=== PATIENT | female | born 1940 | race Two or more races ===

== ENCOUNTER 2022-06-21 14:19 | Inpatient (IN) | payer OTHER ==
[2022-06-21 18:48] LABS: BASO % 0.8 % (0-2.0); EOS % 1.7 % (0-4.5); HEMATOCRIT 19.9 % (32.4-45.2); LYMPH % 26.4 % (8-40); MCH 36.6 pg (25.7-33.7); MCHC 33.7 g/dl (32.0-36.0); MEAN CELL VOLUME 108.4 fl (80-96); MEAN PLT VOLUME 8.6 fl (7.5-11.1); MONO % 15.1 % (3.8-10.2); PLATELET COUNT 229 10^3/uL (134-434); RBC 1.84 M/mm3 (3.60-5.2); RDW 16.4 % (11.6-15.6); WHITE BLOOD COUNT 6.9 K/mm3 (4.0-10.0)
[2022-06-21 18:51] LABS: HEMOGLOBIN 6.7 GM/dL (10.7-15.3)
[2022-06-21 18:56] LABS: INR 1.06 (0.83-1.09); PROTHROMBIN TIME (PATIENT) 12.2 SEC (9.7-13.0)
[2022-06-21 18:58] LABS: ACTIVATED PTT 26.2 SECONDS (25.2-36.5)
[2022-06-21 19:08] LABS: CALCIUM 8.6 mg/dL (8.5-10.1)
[2022-06-21 19:10] LABS: ALBUMIN 2.9 g/dl (3.4-5.0); BLOOD UREA NITROGEN 18.8 mg/dL (7-18)
[2022-06-21 19:13] LABS: ANISOCYTOSIS 1+; CREATININE 4.8 mg/dL (0.55-1.3); MACROCYTOSIS 0
[2022-06-21 19:14] LABS: BILIRUBIN,TOTAL 0.7 mg/dL (0.2-1); TOT PROT 5.9 g/dl (6.4-8.2)
[2022-06-21 22:44] LABS: IRON SERUM 116 ug/dL (50-175); TOTAL IRON BINDING CAPACITY 309 ug/dL (250-450)
[2022-06-22] MEDS: DEXTROSE 5%-0.45% SALINE 1,000 ML IV SCH (05:20)
[2022-06-22] MEDS ORDERED: SODIUM CHLORIDE 250 ML IV PRN (10:48)
[2022-06-22 10:53] LABS: BASO % 0.7 % (0-2.0); EOS % 1.5 % (0-4.5); HEMATOCRIT 27.5 % (32.4-45.2); HEMOGLOBIN 9.4 GM/dL (10.7-15.3); LYMPH % 13.7 % (8-40); MCH 35.2 pg (25.7-33.7); MCHC 34.4 g/dl (32.0-36.0); MEAN CELL VOLUME 102.3 fl (80-96); MEAN PLT VOLUME 8.6 fl (7.5-11.1); MONO % 12.3 % (3.8-10.2); NEUT % 71.8 % (42.8-82.8); PLATELET COUNT 212 10^3/uL (134-434); RBC 2.68 M/mm3 (3.60-5.2); RDW 18.5 % (11.6-15.6); WHITE BLOOD COUNT 8.9 K/mm3 (4.0-10.0)
[2022-06-22 11:40] LABS: ALBUMIN 2.9 g/dl (3.4-5.0); BLOOD UREA NITROGEN 20.1 mg/dL (7-18); CALCIUM 8.4 mg/dL (8.5-10.1)
[2022-06-22 11:43] LABS: CREATININE 5.1 mg/dL (0.55-1.3)
[2022-06-22 11:44] LABS: BILIRUBIN,TOTAL 0.7 mg/dL (0.2-1); TOT PROT 5.7 g/dl (6.4-8.2)
[2022-06-22] MEDS ORDERED: EPOETIN ALFA-EPBX 20,000 UNIT/ML VIAL IVPUSH ONE (13:00)
[2022-06-22] MEDS: PANTOPRAZOLE SODIUM 40 MG VIAL IVPUSH SCH (13:06)
[2022-06-22] MEDS ORDERED: PANTOPRAZOLE SODIUM 40 MG/100 ML BAG IVPB ONE (13:07)
[2022-06-22] MEDS: FLU VACC QS2022-23(6MOS UP)/PF 60 MCG/0.5 ML SYRINGE IM ONE (19:45)
[2022-06-23 07:56] LABS: BASO % 0.7 % (0-2.0); EOS % 1.3 % (0-4.5); HEMOGLOBIN 8.8 GM/dL (10.7-15.3); LYMPH % 17.7 % (8-40); MCH 34.7 pg (25.7-33.7); MCHC 33.8 g/dl (32.0-36.0); MEAN CELL VOLUME 102.6 fl (80-96); MEAN PLT VOLUME 8.5 fl (7.5-11.1); MONO % 15.5 % (3.8-10.2); NEUT % 64.8 % (42.8-82.8); PLATELET COUNT 216 10^3/uL (134-434); RBC 2.53 M/mm3 (3.60-5.2); RDW 19.4 % (11.6-15.6); WHITE BLOOD COUNT 6.9 K/mm3 (4.0-10.0)
[2022-06-23 08:21] LABS: CALCIUM 8.4 mg/dL (8.5-10.1)
[2022-06-23 08:22] LABS: ALBUMIN 2.6 g/dl (3.4-5.0)
[2022-06-23 08:25] LABS: BILIRUBIN,TOTAL 0.4 mg/dL (0.2-1); CREATININE 3.2 mg/dL (0.55-1.3); TOT PROT 5.4 g/dl (6.4-8.2)
[2022-06-23] MEDS: PANTOPRAZOLE SODIUM 40 MG VIAL IVPUSH SCH (10:21)
[2022-06-23] MEDS: DEXTROSE 5%-0.45% SALINE 1,000 ML IV SCH ×2 (10:23→21:35)
[2022-06-23] MEDS: ROSUVASTATIN CA 10 MG TABLET PO SCH (21:34)
[2022-06-24 07:52] LABS: BASO % 1.2 % (0-2.0); HEMATOCRIT 34.1 % (32.4-45.2); HEMOGLOBIN 11.2 GM/dL (10.7-15.3); LYMPH % 18.1 % (8-40); MCH 34.8 pg (25.7-33.7); MCHC 32.9 g/dl (32.0-36.0); MEAN CELL VOLUME 105.8 fl (80-96); MEAN PLT VOLUME 8.6 fl (7.5-11.1); MONO % 8.1 % (3.8-10.2); NEUT % 71.6 % (42.8-82.8); PLATELET COUNT 265 10^3/uL (134-434); RBC 3.23 M/mm3 (3.60-5.2); RDW 19.4 % (11.6-15.6); WHITE BLOOD COUNT 12.2 K/mm3 (4.0-10.0)
[2022-06-24 08:14] LABS: CALCIUM 9.2 mg/dL (8.5-10.1)
[2022-06-24 08:15] LABS: BLOOD UREA NITROGEN 10.2 mg/dL (7-18)
[2022-06-24 08:19] LABS: CREATININE 4.1 mg/dL (0.55-1.3)
[2022-06-24] MEDS: SERTRALINE HCL 25 MG TABLET (FP) PO SCH (09:24)
[2022-06-24] MEDS: PANTOPRAZOLE SODIUM 40 MG VIAL IVPUSH SCH (09:24)
[2022-06-24] MEDS: CARVEDILOL 6.25 MG TABLET (FP) PO SCH ×2 (09:24→16:52)
[2022-06-24] MEDS: DONEPEZIL HCL 10 MG TABLET (FP) PO SCH (09:25)
[2022-06-24] MEDS: SEVELAMER CARBONATE 0.8 GM POWDER PACKET PO SCH ×3 (09:25→16:53)
[2022-06-24] MEDS: DEXTROSE 5%-0.45% SALINE 1,000 ML IV SCH (11:58)
[2022-06-24] MEDS ORDERED: SODIUM CHLORIDE 250 ML IV PRN (13:00)
[2022-06-24] MEDS: ROSUVASTATIN CA 10 MG TABLET PO SCH (21:19)
[2022-06-25] MEDS: SEVELAMER CARBONATE 0.8 GM POWDER PACKET PO SCH ×3 (08:11→16:39)
[2022-06-25 08:41] LABS: BASO % 1.2 % (0-2.0); EOS % 1.9 % (0-4.5); HEMATOCRIT 28.2 % (32.4-45.2); HEMOGLOBIN 9.4 GM/dL (10.7-15.3); LYMPH % 13.8 % (8-40); MCH 35.4 pg (25.7-33.7); MCHC 33.4 g/dl (32.0-36.0); MEAN PLT VOLUME 8.5 fl (7.5-11.1); MONO % 9.1 % (3.8-10.2); PLATELET COUNT 213 10^3/uL (134-434); RBC 2.66 M/mm3 (3.60-5.2); RDW 19.1 % (11.6-15.6); WHITE BLOOD COUNT 9.7 K/mm3 (4.0-10.0)
[2022-06-25 09:02] LABS: CALCIUM 9.3 mg/dL (8.5-10.1)
[2022-06-25 09:03] LABS: ALBUMIN 2.8 g/dl (3.4-5.0); BLOOD UREA NITROGEN 16.6 mg/dL (7-18)
[2022-06-25 09:05] LABS: CREATININE 4.7 mg/dL (0.55-1.3)
[2022-06-25 09:07] LABS: BILIRUBIN,TOTAL 0.5 mg/dL (0.2-1)
[2022-06-25 09:45] LABS: HEMATOCRIT 25.6 % (32.4-45.2); HEMOGLOBIN 8.6 GM/dL (10.7-15.3); MCH 35.4 pg (25.7-33.7); MCHC 33.5 g/dl (32.0-36.0); MEAN CELL VOLUME 105.5 fl (80-96); MEAN PLT VOLUME 8.4 fl (7.5-11.1); PLATELET COUNT 213 10^3/uL (134-434); RBC 2.43 M/mm3 (3.60-5.2); RDW 19.2 % (11.6-15.6); WHITE BLOOD COUNT 9.1 K/mm3 (4.0-10.0)
[2022-06-25 10:19] LABS: BLOOD UREA NITROGEN 17.7 mg/dL (7-18); CALCIUM 9.2 mg/dL (8.5-10.1)
[2022-06-25 10:23] LABS: CREATININE 4.8 mg/dL (0.55-1.3)
[2022-06-25] MEDS: CARVEDILOL 6.25 MG TABLET (FP) PO SCH ×2 (10:29→16:39)
[2022-06-25] MEDS: SERTRALINE HCL 25 MG TABLET (FP) PO SCH (12:12)
[2022-06-25] MEDS: DONEPEZIL HCL 10 MG TABLET (FP) PO SCH (12:12)
[2022-06-25] MEDS: PANTOPRAZOLE SODIUM 40 MG VIAL IVPUSH SCH (12:13)
[2022-06-25 12:28] LABS: ANISOCYTOSIS 0; MACROCYTOSIS 2+
[2022-06-25 14:29] LABS: N-TERMINAL BNP 24169.8 pg/ml (5-450)
[2022-06-25] MEDS: ROSUVASTATIN CA 10 MG TABLET PO SCH (21:37)
[2022-06-26] MEDS: SEVELAMER CARBONATE 0.8 GM POWDER PACKET PO SCH ×3 (07:56→16:53)
[2022-06-26] MEDS: CARVEDILOL 6.25 MG TABLET (FP) PO SCH ×2 (07:57→16:52)
[2022-06-26] MEDS: SERTRALINE HCL 25 MG TABLET (FP) PO SCH (09:59)
[2022-06-26] MEDS: DONEPEZIL HCL 10 MG TABLET (FP) PO SCH (09:59)
[2022-06-26] MEDS: PANTOPRAZOLE SODIUM 40 MG VIAL IVPUSH SCH (09:59)
[2022-06-26] MEDS ORDERED: SODIUM CHLORIDE 250 ML IV PRN (12:42)
[2022-06-26] MEDS: ROSUVASTATIN CA 10 MG TABLET PO SCH (21:03)
[2022-06-27] MEDS ORDERED: EPOETIN ALFA-EPBX 10,000 UNIT/ML VIAL IVPUSH ONE (13:00)
[2022-06-27] MEDS: DONEPEZIL HCL 10 MG TABLET (FP) PO SCH (18:04)
[2022-06-27] MEDS: CARVEDILOL 6.25 MG TABLET (FP) PO SCH ×2 (18:04)
[2022-06-27] MEDS: SEVELAMER CARBONATE 0.8 GM POWDER PACKET PO SCH ×3 (18:05→18:06)
[2022-06-27] MEDS: SERTRALINE HCL 25 MG TABLET (FP) PO SCH (18:05)
[2022-06-27] MEDS: PANTOPRAZOLE SODIUM 40 MG VIAL IVPUSH SCH (18:07)
[2022-06-27] MEDS: ROSUVASTATIN CA 10 MG TABLET PO SCH (21:24)
[2022-06-28] MEDS: SEVELAMER CARBONATE 0.8 GM POWDER PACKET PO SCH ×3 (08:54→16:38)
[2022-06-28] MEDS: CARVEDILOL 6.25 MG TABLET (FP) PO SCH ×2 (08:54→16:38)
[2022-06-28] MEDS: PANTOPRAZOLE SODIUM 40 MG VIAL IVPUSH SCH (09:41)
[2022-06-28] MEDS: SERTRALINE HCL 25 MG TABLET (FP) PO SCH (09:41)
[2022-06-28] MEDS: DONEPEZIL HCL 10 MG TABLET (FP) PO SCH (09:41)
[2022-06-28] MEDS ORDERED: SODIUM CHLORIDE 250 ML IV PRN (15:58)
[2022-06-28 17:30] LABS: BASO % 0.7 % (0-2.0); EOS % 2.6 % (0-4.5); HEMATOCRIT 26.6 % (32.4-45.2); LYMPH % 15.3 % (8-40); MCHC 33.8 g/dl (32.0-36.0); MEAN CELL VOLUME 106.5 fl (80-96); MEAN PLT VOLUME 7.9 fl (7.5-11.1); MONO % 10.3 % (3.8-10.2); NEUT % 71.1 % (42.8-82.8); PLATELET COUNT 216 10^3/uL (134-434); RDW 19.5 % (11.6-15.6); WHITE BLOOD COUNT 7.3 K/mm3 (4.0-10.0)
[2022-06-28 17:45] LABS: CALCIUM 9.2 mg/dL (8.5-10.1)
[2022-06-28 17:46] LABS: ALBUMIN 2.7 g/dl (3.4-5.0); BLOOD UREA NITROGEN 9.6 mg/dL (7-18)
[2022-06-28 17:50] LABS: ANISOCYTOSIS 2+; CREATININE 3.6 mg/dL (0.55-1.3); MACROCYTOSIS 2+; TARGET CELLS 1+
[2022-06-28 17:51] LABS: BILIRUBIN,TOTAL 0.4 mg/dL (0.2-1); TOT PROT 5.7 g/dl (6.4-8.2)
[2022-06-28 20:56] VITALS: BMI 30.1
[2022-06-29] MEDS: ROSUVASTATIN CA 10 MG TABLET PO SCH ×2 (07:23→21:07)
[2022-06-29] MEDS: SEVELAMER CARBONATE 0.8 GM POWDER PACKET PO SCH ×3 (09:01→18:43)
[2022-06-29] MEDS: DONEPEZIL HCL 10 MG TABLET (FP) PO SCH (09:02)
[2022-06-29] MEDS: SERTRALINE HCL 25 MG TABLET (FP) PO SCH (09:02)
[2022-06-29] MEDS: PANTOPRAZOLE SODIUM 40 MG VIAL IVPUSH SCH (09:02)
[2022-06-29] MEDS ORDERED: EPOETIN ALFA-EPBX 10,000 UNIT/ML VIAL SQ ONE (16:15)
[2022-06-29 16:36] LABS: HEMATOCRIT 25.6 % (32.4-45.2); HEMOGLOBIN 8.5 GM/dL (10.7-15.3); MCH 35.1 pg (25.7-33.7); MCHC 33.1 g/dl (32.0-36.0); MEAN CELL VOLUME 106.1 fl (80-96); MEAN PLT VOLUME 8.3 fl (7.5-11.1); PLATELET COUNT 214 10^3/uL (134-434); RBC 2.41 M/mm3 (3.60-5.2); RDW 19.3 % (11.6-15.6); WHITE BLOOD COUNT 7.8 K/mm3 (4.0-10.0)
[2022-06-29 16:59] LABS: ALBUMIN 2.6 g/dl (3.4-5.0); CALCIUM 9.2 mg/dL (8.5-10.1)
[2022-06-29 17:02] LABS: CREATININE 4.1 mg/dL (0.55-1.3)
[2022-06-29 17:04] LABS: BILIRUBIN,TOTAL 0.4 mg/dL (0.2-1); TOT PROT 5.4 g/dl (6.4-8.2)
[2022-06-29] MEDS: CARVEDILOL 6.25 MG TABLET (FP) PO SCH ×2 (18:04→18:43)
[2022-06-30] MEDS: SEVELAMER CARBONATE 0.8 GM POWDER PACKET PO SCH ×2 (08:30→12:22)
[2022-06-30] MEDS: CARVEDILOL 6.25 MG TABLET (FP) PO SCH (08:30)
[2022-06-30] MEDS: DONEPEZIL HCL 10 MG TABLET (FP) PO SCH (10:07)
[2022-06-30] MEDS: SERTRALINE HCL 25 MG TABLET (FP) PO SCH (10:07)
[2022-06-30] MEDS: PANTOPRAZOLE SODIUM 40 MG VIAL IVPUSH SCH (10:07)
[2022-06-30 10:19] VITALS: BP 139/72; PULSE 75; RESP 16; TEMP 99.4
== END 2022-06-30 13:15 | disposition home or self-care (01) | DRG 377 ==
LOC: JER 14:19 → JERBED 06-22 01:52 → J4W 06-22 16:22
PROVIDERS: ADMIT Internal Medicine; ATTEND Internal Medicine
PROC: 30233N1 Transfusion of Nonautologous Red Blood Cells into Peripheral Vein, Percutaneous Approach (ICD-10-PCS; principal; 2022-06-21)
PROC: 5A1D70Z Performance of Urinary Filtration, Intermittent, Less than 6 Hours Per Day (ICD-10-PCS; 2022-06-29)
DX: K92.2 Gastrointestinal hemorrhage, unspecified (principal); N18.6 End stage renal disease; D62 Acute posthemorrhagic anemia; E87.20 Acidosis, unspecified; I42.9 Cardiomyopathy, unspecified; E87.1 Hypo-osmolality and hyponatremia; I12.0 Hypertensive chronic kidney disease with stage 5 chronic kidney disease or end stage renal disease; F03.90 Unspecified dementia, unspecified severity, without behavioral disturbance, psychotic disturbance, mood disturbance, and anxiety; Z99.2 Dependence on renal dialysis
CPT/HCPCS: 36415; 36430; 71260-TC; 74176-TC; 76775-TC; 80048; 80053; 80061; 82272; 82607; 82728; 82746; 83036; 83540; 83550; 83880; 84443; 85025; 85027; 85610; 85730; 86803; 86850; 86900; 86901; 86922; 87340; 93005; 93010; 93306-TC; 99285-25; C9803-CS; G0008; P9058; Q2036; Q5106; Q9967; U0003; U0005

== ENCOUNTER 2022-08-24 10:53 | Inpatient (IN) | payer OTHER ==
[~2022-08-24 10:53] MED LIST: SEVELAMER CARBONATE 0.8 GM POWDER PACKET PO SCH
[2022-08-24 11:08] VITALS: BMI 27.3
[2022-08-24] MEDS ORDERED: ACETAMINOPHEN 1000 MG/100 ML BAG IVPB ONE (12:48)
[2022-08-24] MEDS ORDERED: FUROSEMIDE 40 MG/4 ML INJECTABLE VIAL IVPUSH ONE (12:48)
[2022-08-24] MEDS ORDERED: LIDOCAINE 5% TOPICAL PATCH TP ONE (12:49)
[2022-08-24] MEDS ORDERED: ACETAMINOPHEN INJECTION 100 ML IVPB ONE (12:56)
[2022-08-24] MEDS ORDERED: FUROSEMIDE 40 MG TABLET (FP) ONE (12:56)
[2022-08-24] MEDS ORDERED: LIDOCAINE 5% TOPICAL PATCH ONE (12:56)
[2022-08-24 12:58] LABS: BASO % 0.7 % (0-2.0); EOS % 1.4 % (0-4.5); HEMATOCRIT 28.4 % (32.4-45.2); HEMOGLOBIN 9.4 GM/dL (10.7-15.3); LYMPH % 19.6 % (8-40); MCH 35.3 pg (25.7-33.7); MCHC 33.2 g/dl (32.0-36.0); MEAN CELL VOLUME 106.2 fl (80-96); MEAN PLT VOLUME 8.2 fl (7.5-11.1); MONO % 13.4 % (3.8-10.2); NEUT % 64.9 % (42.8-82.8); PLATELET COUNT 241 10^3/uL (134-434); RBC 2.67 M/mm3 (3.60-5.2); RDW 17.9 % (11.6-15.6); WHITE BLOOD COUNT 7.3 K/mm3 (4.0-10.0)
[2022-08-24 12:59] LABS: INR 1.08 (0.83-1.09); PROTHROMBIN TIME (PATIENT) 12.4 SEC (9.7-13.0)
[2022-08-24 13:14] LABS: CHLORIDE 98 mmol/L (98-107); SODIUM 137 mmol/L (136-145)
[2022-08-24 13:16] LABS: CALCIUM 8.9 mg/dL (8.5-10.1)
[2022-08-24 13:17] LABS: ANION GAP 12 MMOL/L (8-16); CO2 27 mmol/L (21-32); GLUCOSE,RANDOM 88 mg/dL (74-106)
[2022-08-24 13:20] LABS: CREATININE 3.6 mg/dL (0.55-1.3); SGOT/AST 38 U/L (15-37); SGPT/ALT 33 U/L (13-61)
[2022-08-24 13:22] LABS: BILIRUBIN,TOTAL 0.4 mg/dL (0.2-1); TOT PROT 7.1 g/dl (6.4-8.2)
[2022-08-24 13:26] LABS: ALK PHOS 147 U/L (45-117)
[2022-08-24 13:40] LABS: ANISOCYTOSIS 1+; MACROCYTOSIS 0
[2022-08-24 13:45] LABS: N-TERMINAL BNP 26339.5 pg/ml (5-450)
[2022-08-24] MEDS ORDERED: FUROSEMIDE 40 MG/4 ML INJECTABLE VIAL ONE (14:37)
[2022-08-24] MEDS ORDERED: NITROGLYCERIN 2% OINTMENT - 1GM PACKET TD ONE ×2 (15:01→15:37)
[2022-08-24] MEDS ORDERED: ACETAMINOPHEN 325 MG TABLET (FP) PO ONE (15:35)
[2022-08-24] MEDS ORDERED: ACETAMINOPHEN 325 MG TABLET (FP) ONE ×2 (15:37→22:47)
[2022-08-24] MEDS ORDERED: LIDOCAINE PATCH REMOVAL MC ONE (22:00)
[2022-08-24] MEDS: ACETAMINOPHEN 325 MG TABLET (FP) PO PRN (22:52)
[2022-08-24] MEDS ORDERED: CARVEDILOL 6.25 MG TABLET (FP) ONE (23:26)
[2022-08-24] MEDS: CARVEDILOL 6.25 MG TABLET (FP) PO SCH (23:30)
[2022-08-25] MEDS ORDERED: SODIUM CHLORIDE 250 ML IV PRN (06:38)
[2022-08-25 08:09] LABS: BASO % 1.1 % (0-2.0); EOS % 2.1 % (0-4.5); HEMATOCRIT 27.6 % (32.4-45.2); HEMOGLOBIN 9.2 GM/dL (10.7-15.3); LYMPH % 18.1 % (8-40); MCH 35.9 pg (25.7-33.7); MCHC 33.5 g/dl (32.0-36.0); MEAN CELL VOLUME 107.2 fl (80-96); MEAN PLT VOLUME 7.9 fl (7.5-11.1); MONO % 11.1 % (3.8-10.2); NEUT % 67.6 % (42.8-82.8); PLATELET COUNT 224 10^3/uL (134-434); RBC 2.58 M/mm3 (3.60-5.2); RDW 17.7 % (11.6-15.6); WHITE BLOOD COUNT 6.5 K/mm3 (4.0-10.0)
[2022-08-25 08:31] LABS: CHLORIDE 100 mmol/L (98-107); SODIUM 138 mmol/L (136-145)
[2022-08-25 08:48] LABS: CALCIUM 9.2 mg/dL (8.5-10.1)
[2022-08-25 08:49] LABS: ALBUMIN 2.8 g/dl (3.4-5.0); ANION GAP 15 MMOL/L (8-16); BLOOD UREA NITROGEN 23.9 mg/dL (7-18); CO2 23 mmol/L (21-32); GLUCOSE,RANDOM 70 mg/dL (74-106)
[2022-08-25 08:53] LABS: BILIRUBIN,TOTAL 0.4 mg/dL (0.2-1); CREATININE 4.2 mg/dL (0.55-1.3); SGOT/AST 30 U/L (15-37); SGPT/ALT 27 U/L (13-61); TOT PROT 6.6 g/dl (6.4-8.2)
[2022-08-25 08:55] LABS: ALK PHOS 139 U/L (45-117)
[2022-08-25] MEDS ORDERED: PANTOPRAZOLE 40 MG TABLET PO ONE (10:10)
[2022-08-25] MEDS ORDERED: ACETAMINOPHEN 325 MG TABLET (FP) ONE (10:10)
[2022-08-25] MEDS ORDERED: SERTRALINE HCL 50 MG TABLET (FP) ONE (10:10)
[2022-08-25] MEDS ORDERED: DONEPEZIL HCL 5 MG TABLET (FP) ONE (10:10)
[2022-08-25] MEDS ORDERED: CARVEDILOL 6.25 MG TABLET (FP) ONE (10:11)
[2022-08-25] MEDS: SERTRALINE HCL 25 MG TABLET (FP) PO SCH (10:31)
[2022-08-25] MEDS: HEPARIN NA (PORCINE) 5,000 UNITS/ML 1ML VIAL SQ SCH ×2 (10:31→22:28)
[2022-08-25] MEDS: ACETAMINOPHEN 325 MG TABLET (FP) PO PRN (10:31)
[2022-08-25] MEDS: SEVELAMER CARBONATE 0.8 GM POWDER PACKET PO SCH ×2 (10:31→11:55)
[2022-08-25] MEDS: CARVEDILOL 6.25 MG TABLET (FP) PO SCH ×2 (10:31→22:28)
[2022-08-25] MEDS: PANTOPRAZOLE 40 MG TABLET PO SCH (10:31)
[2022-08-25] MEDS ORDERED: EPOETIN ALFA-EPBX 10,000 UNIT/ML VIAL IVPUSH ONE (17:30)
[2022-08-25] MEDS ORDERED: HEPARIN NA (PORCINE) 5,000 UNITS/ML 1ML VIAL IVPUSH ONE (17:30)
[2022-08-25] MEDS: DONEPEZIL HCL 10 MG TABLET (FP) PO SCH (22:28)
[2022-08-26] MEDS: ACETAMINOPHEN 325 MG TABLET (FP) PO PRN ×2 (06:48→21:26)
[2022-08-26 07:42] LABS: BASO % 0.9 % (0-2.0); EOS % 2.2 % (0-4.5); HEMATOCRIT 28.2 % (32.4-45.2); HEMOGLOBIN 9.3 GM/dL (10.7-15.3); LYMPH % 22.6 % (8-40); MCH 35.3 pg (25.7-33.7); MEAN PLT VOLUME 8.2 fl (7.5-11.1); MONO % 13.6 % (3.8-10.2); NEUT % 60.7 % (42.8-82.8); PLATELET COUNT 208 10^3/uL (134-434); RBC 2.63 M/mm3 (3.60-5.2); RDW 17.7 % (11.6-15.6); WHITE BLOOD COUNT 5.1 K/mm3 (4.0-10.0)
[2022-08-26 08:19] LABS: ALBUMIN 2.6 g/dl (3.4-5.0); BLOOD UREA NITROGEN 10.2 mg/dL (7-18)
[2022-08-26 08:21] LABS: CREATININE 2.7 mg/dL (0.55-1.3)
[2022-08-26 08:22] LABS: BILIRUBIN,TOTAL 0.3 mg/dL (0.2-1); TOT PROT 6.3 g/dl (6.4-8.2)
[2022-08-26] MEDS: PANTOPRAZOLE 40 MG TABLET PO SCH (09:50)
[2022-08-26] MEDS: SERTRALINE HCL 25 MG TABLET (FP) PO SCH (09:50)
[2022-08-26] MEDS: CARVEDILOL 6.25 MG TABLET (FP) PO SCH ×2 (09:50→21:26)
[2022-08-26] MEDS: HEPARIN NA (PORCINE) 5,000 UNITS/ML 1ML VIAL SQ SCH ×2 (09:50→21:27)
[2022-08-26] MEDS: SEVELAMER CARBONATE 0.8 GM POWDER PACKET PO SCH ×4 (10:01→17:53)
[2022-08-26] MEDS: DONEPEZIL HCL 10 MG TABLET (FP) PO SCH (21:26)
[2022-08-27 07:57] LABS: BASO % 0.9 % (0-2.0); HEMATOCRIT 27.1 % (32.4-45.2); HEMOGLOBIN 9.1 GM/dL (10.7-15.3); LYMPH % 35.9 % (8-40); MCH 35.9 pg (25.7-33.7); MCHC 33.5 g/dl (32.0-36.0); MEAN CELL VOLUME 107.3 fl (80-96); MEAN PLT VOLUME 7.4 fl (7.5-11.1); MONO % 16.4 % (3.8-10.2); NEUT % 43.8 % (42.8-82.8); PLATELET COUNT 215 10^3/uL (134-434); RBC 2.53 M/mm3 (3.60-5.2); RDW 18.1 % (11.6-15.6); WHITE BLOOD COUNT 3.7 K/mm3 (4.0-10.0)
[2022-08-27 08:19] LABS: CALCIUM 9.1 mg/dL (8.5-10.1)
[2022-08-27 08:20] LABS: ALBUMIN 2.7 g/dl (3.4-5.0)
[2022-08-27 08:23] LABS: CREATININE 4.1 mg/dL (0.55-1.3)
[2022-08-27 08:24] LABS: BILIRUBIN,TOTAL 0.6 mg/dL (0.2-1); TOT PROT 6.5 g/dl (6.4-8.2)
[2022-08-27] MEDS: SEVELAMER CARBONATE 0.8 GM POWDER PACKET PO SCH ×3 (09:00→18:44)
[2022-08-27] MEDS: PANTOPRAZOLE 40 MG TABLET PO SCH (11:29)
[2022-08-27] MEDS: HEPARIN NA (PORCINE) 5,000 UNITS/ML 1ML VIAL SQ SCH ×2 (11:29→21:27)
[2022-08-27] MEDS: SERTRALINE HCL 25 MG TABLET (FP) PO SCH (11:29)
[2022-08-27] MEDS: CARVEDILOL 6.25 MG TABLET (FP) PO SCH ×2 (11:29→21:27)
[2022-08-27] MEDS: FOLIC ACID 1 MG TABLET (FP) PO SCH (11:41)
[2022-08-27] MEDS: ACETAMINOPHEN 325 MG TABLET (FP) PO PRN (20:17)
[2022-08-27] MEDS: DONEPEZIL HCL 10 MG TABLET (FP) PO SCH (21:27)
[2022-08-28] MEDS: SEVELAMER CARBONATE 0.8 GM POWDER PACKET PO SCH ×3 (08:18→17:32)
[2022-08-28] MEDS: CARVEDILOL 6.25 MG TABLET (FP) PO SCH ×3 (09:54→21:53)
[2022-08-28] MEDS: HEPARIN NA (PORCINE) 5,000 UNITS/ML 1ML VIAL SQ SCH ×3 (09:55→21:53)
[2022-08-28] MEDS: FOLIC ACID 1 MG TABLET (FP) PO SCH ×3 (09:55→13:53)
[2022-08-28] MEDS: EPOETIN ALFA-EPBX 10,000 UNIT/ML VIAL IVPUSH ONE ×2 (09:56→10:45)
[2022-08-28] MEDS: SERTRALINE HCL 25 MG TABLET (FP) PO SCH ×2 (09:57→13:53)
[2022-08-28] MEDS: PANTOPRAZOLE 40 MG TABLET PO SCH ×2 (09:58→13:53)
[2022-08-28] MEDS: HEPARIN NA (PORCINE) 5,000 UNITS/ML 1ML VIAL IVPUSH ONE ×2 (09:58→10:30)
[2022-08-28] MEDS ORDERED: SODIUM CHLORIDE 250 ML IV PRN (10:00)
[2022-08-28 10:24] LABS: HEMATOCRIT 27.3 % (32.4-45.2); HEMOGLOBIN 9.1 GM/dL (10.7-15.3); MCH 35.7 pg (25.7-33.7); MCHC 33.4 g/dl (32.0-36.0); MEAN CELL VOLUME 106.8 fl (80-96); MEAN PLT VOLUME 8.1 fl (7.5-11.1); PLATELET COUNT 219 10^3/uL (134-434); RBC 2.56 M/mm3 (3.60-5.2); RDW 17.9 % (11.6-15.6); WHITE BLOOD COUNT 4.1 K/mm3 (4.0-10.0)
[2022-08-28 10:41] LABS: CALCIUM 9.2 mg/dL (8.5-10.1)
[2022-08-28 10:45] LABS: CREATININE 4.9 mg/dL (0.55-1.3)
[2022-08-28] MEDS: ACETAMINOPHEN 325 MG TABLET (FP) PO PRN (14:03)
[2022-08-28] MEDS: DONEPEZIL HCL 10 MG TABLET (FP) PO SCH (21:53)
[2022-08-29] MEDS: CARVEDILOL 6.25 MG TABLET (FP) PO SCH ×2 (10:33→21:21)
[2022-08-29] MEDS: SEVELAMER CARBONATE 0.8 GM POWDER PACKET PO SCH ×3 (10:33→17:13)
[2022-08-29] MEDS: FOLIC ACID 1 MG TABLET (FP) PO SCH (10:34)
[2022-08-29] MEDS: PANTOPRAZOLE 40 MG TABLET PO SCH (10:34)
[2022-08-29] MEDS: SERTRALINE HCL 25 MG TABLET (FP) PO SCH (10:34)
[2022-08-29] MEDS: HEPARIN NA (PORCINE) 5,000 UNITS/ML 1ML VIAL SQ SCH ×2 (10:35→21:21)
[2022-08-29] MEDS: DONEPEZIL HCL 10 MG TABLET (FP) PO SCH (21:21)
[2022-08-30] MEDS: ACETAMINOPHEN 325 MG TABLET (FP) PO PRN (02:26)
[2022-08-30] MEDS ORDERED: SODIUM CHLORIDE 250 ML IV PRN (08:39)
[2022-08-30 09:09] LABS: HEMATOCRIT 29.8 % (32.4-45.2); HEMOGLOBIN 9.9 GM/dL (10.7-15.3); MCH 35.6 pg (25.7-33.7); MCHC 33.2 g/dl (32.0-36.0); MEAN CELL VOLUME 107.1 fl (80-96); MEAN PLT VOLUME 7.9 fl (7.5-11.1); PLATELET COUNT 223 10^3/uL (134-434); RBC 2.78 M/mm3 (3.60-5.2); RDW 17.8 % (11.6-15.6); WHITE BLOOD COUNT 5.1 K/mm3 (4.0-10.0)
[2022-08-30] MEDS ORDERED: EPOETIN ALFA-EPBX 10,000 UNIT/ML VIAL SQ ONE (10:00)
[2022-08-30 10:08] LABS: CALCIUM 9.9 mg/dL (8.5-10.1)
[2022-08-30 10:09] LABS: BLOOD UREA NITROGEN 19.2 mg/dL (7-18)
[2022-08-30 10:12] LABS: CREATININE 4.8 mg/dL (0.55-1.3)
[2022-08-30] MEDS: SEVELAMER CARBONATE 0.8 GM POWDER PACKET PO SCH ×3 (12:08→18:05)
[2022-08-30] MEDS: CARVEDILOL 6.25 MG TABLET (FP) PO SCH ×2 (13:27→23:00)
[2022-08-30] MEDS: HEPARIN NA (PORCINE) 5,000 UNITS/ML 1ML VIAL SQ SCH ×2 (13:27→23:00)
[2022-08-30] MEDS: SERTRALINE HCL 25 MG TABLET (FP) PO SCH (13:27)
[2022-08-30] MEDS: PANTOPRAZOLE 40 MG TABLET PO SCH (13:27)
[2022-08-30] MEDS: FOLIC ACID 1 MG TABLET (FP) PO SCH (13:27)
[2022-08-30 15:10] VITALS: RESP 20
[2022-08-30] MEDS ORDERED: ROSUVASTATIN CA 10 MG TABLET PO SCH (22:00)
[2022-08-30] MEDS: DONEPEZIL HCL 10 MG TABLET (FP) PO SCH (23:00)
[2022-08-31] MEDS: SEVELAMER CARBONATE 0.8 GM POWDER PACKET PO SCH ×3 (08:23→17:27)
[2022-08-31] MEDS: FOLIC ACID 1 MG TABLET (FP) PO SCH (09:50)
[2022-08-31] MEDS: SERTRALINE HCL 25 MG TABLET (FP) PO SCH (09:50)
[2022-08-31] MEDS: PANTOPRAZOLE 40 MG TABLET PO SCH (09:50)
[2022-08-31] MEDS: HEPARIN NA (PORCINE) 5,000 UNITS/ML 1ML VIAL SQ SCH (09:50)
[2022-08-31] MEDS: CARVEDILOL 6.25 MG TABLET (FP) PO SCH (09:50)
[2022-08-31 16:26] VITALS: PULSE 72
[2022-08-31 18:22] VITALS: BP 131/69; TEMP 98.2
== END 2022-08-31 19:20 | DRG 291 ==
LOC: JER 10:53 → JERBED 14:49 → J4W 08-25 15:06
PROVIDERS: ADMIT Internal Medicine; ATTEND Internal Medicine
PROC: 5A1D70Z Performance of Urinary Filtration, Intermittent, Less than 6 Hours Per Day (ICD-10-PCS; principal; 2022-08-30)
DX: I13.2 Hypertensive heart and chronic kidney disease with heart failure and with stage 5 chronic kidney disease, or end stage renal disease (principal); I50.23 Acute on chronic systolic (congestive) heart failure; N18.6 End stage renal disease; I24.8 Other forms of acute ischemic heart disease; E87.1 Hypo-osmolality and hyponatremia; F03.90 Unspecified dementia, unspecified severity, without behavioral disturbance, psychotic disturbance, mood disturbance, and anxiety; D63.1 Anemia in chronic kidney disease; E78.5 Hyperlipidemia, unspecified; I25.10 Atherosclerotic heart disease of native coronary artery without angina pectoris; Z95.5 Presence of coronary angioplasty implant and graft; Z99.2 Dependence on renal dialysis
CPT/HCPCS: 0241U-QW; 36415; 71045-TC-FY; 80048; 80053; 82962; 83735; 83880; 84484; 85025; 85027; 85610; 85730; 86704; 86705; 86803; 86850; 86900; 86901; 87340; 87517; 93005; 93010; 97116-GP; 97161-GP; 99285-25; C9803-CS; J1644; Q5106; U0003; U0005

== ENCOUNTER 2023-01-19 16:49 | Inpatient (IN) | payer OTHER ==
[2023-01-19 17:59] LABS: BASO % 0.8 % (0-2.0); EOS % 2.3 % (0-4.5); HEMATOCRIT 34.4 % (32.4-45.2); HEMOGLOBIN 11.4 GM/dL (10.7-15.3); LYMPH % 30.8 % (8-40); MCH 35.3 pg (25.7-33.7); MCHC 33.1 g/dl (32.0-36.0); MEAN CELL VOLUME 106.4 fl (80-96); MEAN PLT VOLUME 7.3 fl (7.5-11.1); NEUT % 51.1 % (42.8-82.8); PLATELET COUNT 285 10^3/uL (134-434); RBC 3.23 M/mm3 (3.60-5.2); RDW 16.3 % (11.6-15.6); WHITE BLOOD COUNT 5.7 K/mm3 (4.0-10.0)
[2023-01-19 18:06] LABS: INR 0.97 (0.83-1.09); PROTHROMBIN TIME (PATIENT) 11.2 SEC (9.7-13.0)
[2023-01-19 18:12] LABS: POTASSIUM 4.8 mmol/L (3.5-5.1)
[2023-01-19 18:14] LABS: CALCIUM 9.9 mg/dL (8.5-10.1)
[2023-01-19 18:15] LABS: ALBUMIN 3.4 g/dl (3.4-5.0); BLOOD UREA NITROGEN 36.2 mg/dL (7-18); MAGNESIUM 2.2 mg/dL (1.8-2.4)
[2023-01-19 18:19] LABS: BILIRUBIN,TOTAL 0.4 mg/dL (0.2-1); TOT PROT 7.3 g/dl (6.4-8.2)
[2023-01-19 18:53] LABS: EPI CELLS 14 /uL (0-25.1); HYALINE CASTS 0 /uL (0-3.1); URINE APPEARANCE CLEAR; URINE BACTERIA 261 /uL (0-1359); URINE BILIRUBIN NEGATIVE (NEGATIVE); URINE COLOR YELLOW; URINE GLUCOSE (UA) NEGATIVE (NEGATIVE); URINE KETONE NEGATIVE (NEGATIVE); URINE LEUK ESTERASE NEGATIVE (NEGATIVE); URINE NITRITE NEGATIVE (NEGATIVE); URINE PROTEIN 3+ (NEGATIVE); URINE RBC 13 /uL (0-23.9); URINE UROBILINOGEN 0.2 mg/dL (0.2-1.0); URINE WBC 5 /uL (0-25.8)
[2023-01-19 19:14] LABS: ANISOCYTOSIS 2+; MACROCYTOSIS 2+
[2023-01-19] MEDS: CARVEDILOL 6.25 MG TABLET (FP) PO SCH (22:18)
[2023-01-19] MEDS: ROSUVASTATIN CA 20 MG TABLET PO SCH (22:18)
[2023-01-19] MEDS: DONEPEZIL HCL 10 MG TABLET (FP) PO SCH (22:18)
[2023-01-20] MEDS ORDERED: ACETAMINOPHEN 325 MG TABLET (FP) PO ONE (00:29)
[2023-01-20] MEDS: PANTOPRAZOLE 40 MG TABLET PO SCH (06:04)
[2023-01-20 07:29] LABS: BASO % 0.7 % (0-2.0); EOS % 3.4 % (0-4.5); HEMATOCRIT 30.9 % (32.4-45.2); HEMOGLOBIN 10.7 GM/dL (10.7-15.3); LYMPH % 30.3 % (8-40); MCH 36.5 pg (25.7-33.7); MCHC 34.7 g/dl (32.0-36.0); MEAN CELL VOLUME 105.3 fl (80-96); MEAN PLT VOLUME 7.7 fl (7.5-11.1); MONO % 12.3 % (3.8-10.2); NEUT % 53.3 % (42.8-82.8); PLATELET COUNT 260 10^3/uL (134-434); RBC 2.93 M/mm3 (3.60-5.2); RDW 16.3 % (11.6-15.6); WHITE BLOOD COUNT 5.4 K/mm3 (4.0-10.0)
[2023-01-20 07:39] LABS: POTASSIUM 4.6 mmol/L (3.5-5.1)
[2023-01-20 07:43] LABS: ALBUMIN 3.1 g/dl (3.4-5.0); BLOOD UREA NITROGEN 41.8 mg/dL (7-18)
[2023-01-20 07:46] LABS: CREATININE 6.5 mg/dL (0.55-1.3)
[2023-01-20 07:47] LABS: BILIRUBIN,TOTAL 0.7 mg/dL (0.2-1)
[2023-01-20 07:48] LABS: TOT PROT 6.6 g/dl (6.4-8.2)
[2023-01-20] MEDS ORDERED: SODIUM CHLORIDE 250 ML IV PRN (07:53)
[2023-01-20] MEDS: HEPARIN NA (PORCINE) 5,000 UNITS/ML 1ML VIAL SQ SCH ×2 (10:00→22:00)
[2023-01-20] MEDS: SERTRALINE HCL 25 MG TABLET (FP) PO SCH (10:00)
[2023-01-20] MEDS: ISOSORBIDE MONONITRATE 30 MG TAB.SR.24H (FP) PO SCH (10:00)
[2023-01-20] MEDS: CARVEDILOL 6.25 MG TABLET (FP) PO SCH ×2 (11:11→22:00)
[2023-01-20] MEDS: ACETAMINOPHEN 1000 MG/100 ML BAG IVPB PRN ×2 (15:00→21:59)
[2023-01-20 15:05] VITALS: BMI 25.4
[2023-01-20] MEDS: ROSUVASTATIN CA 20 MG TABLET PO SCH (22:00)
[2023-01-20] MEDS: DONEPEZIL HCL 10 MG TABLET (FP) PO SCH (22:00)
[2023-01-21] MEDS: PANTOPRAZOLE 40 MG TABLET PO SCH (06:44)
[2023-01-21] MEDS: ACETAMINOPHEN 1000 MG/100 ML BAG IVPB PRN (07:53)
[2023-01-21] MEDS: SERTRALINE HCL 25 MG TABLET (FP) PO SCH (09:41)
[2023-01-21] MEDS: HEPARIN NA (PORCINE) 5,000 UNITS/ML 1ML VIAL SQ SCH ×2 (09:41→21:26)
[2023-01-21] MEDS: ISOSORBIDE MONONITRATE 30 MG TAB.SR.24H (FP) PO SCH (09:41)
[2023-01-21] MEDS: CARVEDILOL 6.25 MG TABLET (FP) PO SCH ×2 (09:41→21:27)
[2023-01-21] MEDS ORDERED: SODIUM CHLORIDE 250 ML IV PRN (14:12)
[2023-01-21] MEDS: ACETAMINOPHEN 325 MG TABLET (FP) PO PRN ×2 (15:14→21:27)
[2023-01-21] MEDS: ROSUVASTATIN CA 20 MG TABLET PO SCH (21:26)
[2023-01-21] MEDS: DONEPEZIL HCL 10 MG TABLET (FP) PO SCH (21:26)
[2023-01-22] MEDS: PANTOPRAZOLE 40 MG TABLET PO SCH (06:25)
[2023-01-22 06:50] LABS: BASO % 0.8 % (0-2.0); HEMATOCRIT 32.2 % (32.4-45.2); LYMPH % 33.6 % (8-40); MCH 36.4 pg (25.7-33.7); MCHC 34.2 g/dl (32.0-36.0); MEAN CELL VOLUME 106.3 fl (80-96); MEAN PLT VOLUME 7.4 fl (7.5-11.1); MONO % 12.3 % (3.8-10.2); NEUT % 50.3 % (42.8-82.8); PLATELET COUNT 277 10^3/uL (134-434); RBC 3.03 M/mm3 (3.60-5.2); WHITE BLOOD COUNT 5.4 K/mm3 (4.0-10.0)
[2023-01-22 07:06] LABS: POTASSIUM 4.4 mmol/L (3.5-5.1)
[2023-01-22 07:08] LABS: ALBUMIN 3.3 g/dl (3.4-5.0); CALCIUM 10.5 mg/dL (8.5-10.1)
[2023-01-22 07:09] LABS: BLOOD UREA NITROGEN 29.8 mg/dL (7-18)
[2023-01-22 07:12] LABS: CREATININE 5.6 mg/dL (0.55-1.3)
[2023-01-22 07:13] LABS: TOT PROT 7.2 g/dl (6.4-8.2)
[2023-01-22 07:14] LABS: BILIRUBIN,TOTAL 0.5 mg/dL (0.2-1)
[2023-01-22] MEDS: ISOSORBIDE MONONITRATE 30 MG TAB.SR.24H (FP) PO SCH (12:42)
[2023-01-22] MEDS: SERTRALINE HCL 25 MG TABLET (FP) PO SCH (12:42)
[2023-01-22] MEDS: CARVEDILOL 6.25 MG TABLET (FP) PO SCH (12:42)
[2023-01-22] MEDS: ACETAMINOPHEN 325 MG TABLET (FP) PO PRN ×2 (12:45→18:24)
[2023-01-22] MEDS: HEPARIN NA (PORCINE) 5,000 UNITS/ML 1ML VIAL SQ SCH (12:45)
[2023-01-22 14:36] VITALS: BP 124/70; PULSE 83; RESP 22; TEMP 98
== END 2023-01-22 19:01 | disposition home health service (06) | DRG 291 ==
LOC: JER 16:49 → JERBED 17:37 → OBSVTOIN 21:19 → J4W 21:56
PROVIDERS: ADMIT Internal Medicine; ATTEND Internal Medicine
PROC: 5A1D70Z Performance of Urinary Filtration, Intermittent, Less than 6 Hours Per Day (ICD-10-PCS; principal; 2023-01-22)
DX: I13.2 Hypertensive heart and chronic kidney disease with heart failure and with stage 5 chronic kidney disease, or end stage renal disease (principal); I50.33 Acute on chronic diastolic (congestive) heart failure; N18.6 End stage renal disease; I24.8 Other forms of acute ischemic heart disease; E87.1 Hypo-osmolality and hyponatremia; I25.5 Ischemic cardiomyopathy; Z99.2 Dependence on renal dialysis; I10 Essential (primary) hypertension; F03.90 Unspecified dementia, unspecified severity, without behavioral disturbance, psychotic disturbance, mood disturbance, and anxiety; D63.1 Anemia in chronic kidney disease; I08.1 Rheumatic disorders of both mitral and tricuspid valves; I25.10 Atherosclerotic heart disease of native coronary artery without angina pectoris; E78.00 Pure hypercholesterolemia, unspecified; E78.5 Hyperlipidemia, unspecified; Z95.1 Presence of aortocoronary bypass graft
CPT/HCPCS: 0241U-QW; 36415; 71045-TC-FY; 74176-TC; 80053; 81003; 82550; 83690; 83735; 84100; 84439; 84443; 84484; 85025; 85610; 85730; 86803; 87086; 87340; 93005; 93010; 93306-TC; 97116-GP; 97161-GP; 99285-25; G0378; J1644

== ENCOUNTER 2023-05-25 17:28 | Inpatient (IN) | payer OTHER ==
[2023-05-25] MEDS ORDERED: ONDANSETRON 4 MG/2 ML VIAL IVPUSH ONE (18:17)
[2023-05-25] MEDS ORDERED: ONDANSETRON 4 MG/2 ML VIAL ONE (18:53)
[2023-05-25 18:59] LABS: EOS % 1.6 % (0-4.5); HEMATOCRIT 28.1 % (32.4-45.2); HEMOGLOBIN 9.3 GM/dL (10.7-15.3); LYMPH % 21.9 % (8-40); MCH 32.7 pg (25.7-33.7); MCHC 33.2 g/dl (32.0-36.0); MEAN CELL VOLUME 98.4 fl (80-96); MEAN PLT VOLUME 6.8 fl (7.5-11.1); NEUT % 63.5 % (42.8-82.8); PLATELET COUNT 226 10^3/uL (134-434); RBC 2.85 M/mm3 (3.60-5.2); RDW 20.8 % (11.6-15.6); WHITE BLOOD COUNT 4.2 K/mm3 (4.0-10.0)
[2023-05-25 19:08] LABS: INR 1.07 (0.83-1.09); PROTHROMBIN TIME (PATIENT) 12.4 SEC (9.7-13.0)
[2023-05-25 19:11] LABS: ACTIVATED PTT 30.3 SECONDS (25.2-36.5)
[2023-05-25 19:39] LABS: CALCIUM 8.2 mg/dL (8.5-10.1)
[2023-05-25 19:40] LABS: ALBUMIN 3.2 g/dl (3.4-5.0); BLOOD UREA NITROGEN 25.5 mg/dL (7-18); MAGNESIUM 2.3 mg/dL (1.8-2.4)
[2023-05-25 19:43] LABS: CREATININE 4.8 mg/dL (0.55-1.3); PHOSPHOROUS 4.6 mg/dL (2.5-4.9)
[2023-05-25 19:44] LABS: TOT PROT 6.8 g/dl (6.4-8.2)
[2023-05-25 19:45] LABS: BILIRUBIN,TOTAL 0.3 mg/dL (0.2-1)
[2023-05-25 19:48] LABS: N-TERMINAL BNP 34420.9 pg/ml (5-450)
[2023-05-25 20:04] LABS: ANISOCYTOSIS 2+; MACROCYTOSIS 2+; OVALOCYTE 1+
[2023-05-26 08:17] LABS: BASO % 0.7 % (0-2.0); EOS % 1.6 % (0-4.5); HEMATOCRIT 26.8 % (32.4-45.2); MCH 33.1 pg (25.7-33.7); MCHC 33.5 g/dl (32.0-36.0); MEAN CELL VOLUME 98.7 fl (80-96); MEAN PLT VOLUME 7.1 fl (7.5-11.1); MONO % 12.7 % (3.8-10.2); PLATELET COUNT 216 10^3/uL (134-434); RBC 2.71 M/mm3 (3.60-5.2); RDW 20.4 % (11.6-15.6); WHITE BLOOD COUNT 5.3 K/mm3 (4.0-10.0)
[2023-05-26 08:27] LABS: POTASSIUM 4.7 mmol/L (3.5-5.1)
[2023-05-26 08:42] LABS: CALCIUM 8.2 mg/dL (8.5-10.1)
[2023-05-26 08:43] LABS: MAGNESIUM 2.2 mg/dL (1.8-2.4)
[2023-05-26 08:45] LABS: ALBUMIN 2.9 g/dl (3.4-5.0); BLOOD UREA NITROGEN 30.8 mg/dL (7-18)
[2023-05-26 08:46] LABS: CREATININE 5.1 mg/dL (0.55-1.3)
[2023-05-26 08:48] LABS: TOT PROT 6.2 g/dl (6.4-8.2)
[2023-05-26 08:49] LABS: BILIRUBIN,TOTAL 0.4 mg/dL (0.2-1)
[2023-05-26] MEDS ORDERED: HEPARIN NA (PORCINE) 5,000 UNITS/ML 1ML VIAL IVPUSH ONE (14:39)
[2023-05-26] MEDS ORDERED: EPOETIN ALFA 10,000 UNIT/1 ML VIAL IVPUSH ONE (14:40)
[2023-05-26] MEDS ORDERED: SODIUM CHLORIDE 250 ML IV PRN (15:32)
[2023-05-26] MEDS: SEVELAMER CARBONATE 0.8 GM POWDER PACKET PO SCH (19:41)
[2023-05-26] MEDS ORDERED: HEPARIN NA (PORCINE) 5,000 UNITS/ML 1ML VIAL ONE (21:28)
[2023-05-26] MEDS ORDERED: ISOSORBIDE MONONITRATE 30 MG TAB.SR.24H (FP) PO ONE (21:28)
[2023-05-26] MEDS ORDERED: SERTRALINE HCL 50 MG TABLET (FP) ONE (21:28)
[2023-05-26] MEDS ORDERED: CARVEDILOL 6.25 MG TABLET (FP) ONE (21:28)
[2023-05-26] MEDS: CARVEDILOL 6.25 MG TABLET (FP) PO SCH (21:39)
[2023-05-26] MEDS: ISOSORBIDE MONONITRATE 30 MG TAB.SR.24H (FP) PO SCH (21:39)
[2023-05-26] MEDS: SERTRALINE HCL 25 MG TABLET (FP) PO SCH (21:39)
[2023-05-26] MEDS: HEPARIN NA (PORCINE) 5,000 UNITS/ML 1ML VIAL SQ SCH (21:39)
[2023-05-26] MEDS: ACETAMINOPHEN 325 MG TABLET (FP) PO PRN (21:41)
[2023-05-26] MEDS ORDERED: ACETAMINOPHEN 325 MG TABLET (FP) ONE (21:48)
[2023-05-26] MEDS ORDERED: ROSUVASTATIN CA 40 MG TABLET PO SCH (22:00)
[2023-05-27] MEDS ORDERED: ACETAMINOPHEN 325 MG TABLET (FP) ONE (01:55)
[2023-05-27] MEDS: ACETAMINOPHEN 325 MG TABLET (FP) PO PRN ×3 (04:00→18:52)
[2023-05-27 08:10] LABS: POTASSIUM 3.7 mmol/L (3.5-5.1)
[2023-05-27 08:15] LABS: ALBUMIN 2.9 g/dl (3.4-5.0); BLOOD UREA NITROGEN 17.6 mg/dL (7-18); CALCIUM 8.4 mg/dL (8.5-10.1)
[2023-05-27 08:17] LABS: CREATININE 3.5 mg/dL (0.55-1.3)
[2023-05-27 08:19] LABS: BILIRUBIN,TOTAL 0.5 mg/dL (0.2-1); TOT PROT 6.4 g/dl (6.4-8.2)
[2023-05-27 08:23] LABS: BASO % 0.7 % (0-2.0); EOS % 1.4 % (0-4.5); HEMATOCRIT 27.3 % (32.4-45.2); MCH 32.7 pg (25.7-33.7); MCHC 33.1 g/dl (32.0-36.0); MEAN CELL VOLUME 98.9 fl (80-96); MEAN PLT VOLUME 7.8 fl (7.5-11.1); MONO % 15.2 % (3.8-10.2); NEUT % 60.7 % (42.8-82.8); PLATELET COUNT 226 10^3/uL (134-434); RBC 2.76 M/mm3 (3.60-5.2); RDW 20.5 % (11.6-15.6); WHITE BLOOD COUNT 5.5 K/mm3 (4.0-10.0)
[2023-05-27 09:22] VITALS: BMI 24.8
[2023-05-27] MEDS: SEVELAMER CARBONATE 0.8 GM POWDER PACKET PO SCH ×3 (10:58→19:59)
[2023-05-27] MEDS: CARVEDILOL 6.25 MG TABLET (FP) PO SCH ×2 (10:58→21:34)
[2023-05-27] MEDS: HEPARIN NA (PORCINE) 5,000 UNITS/ML 1ML VIAL SQ SCH ×2 (10:59→21:34)
[2023-05-27] MEDS: ISOSORBIDE MONONITRATE 30 MG TAB.SR.24H (FP) PO SCH (10:59)
[2023-05-27] MEDS: SERTRALINE HCL 25 MG TABLET (FP) PO SCH (10:59)
[2023-05-27] MEDS: FOLIC ACID 1 MG TABLET (FP) PO SCH (10:59)
[2023-05-27] MEDS: amLODIPine BESYLATE 2.5 MG TABLET (FP) PO SCH (15:30)
[2023-05-27] MEDS: ROSUVASTATIN CA 10 MG TABLET PO SCH (21:34)
[2023-05-27] MEDS: DONEPEZIL HCL 10 MG TABLET (FP) PO SCH (21:34)
[2023-05-28 07:44] LABS: BASO % 0.6 % (0-2.0); EOS % 1.3 % (0-4.5); HEMOGLOBIN 9.6 GM/dL (10.7-15.3); LYMPH % 20.2 % (8-40); MCH 32.9 pg (25.7-33.7); MEAN CELL VOLUME 99.6 fl (80-96); MEAN PLT VOLUME 7.7 fl (7.5-11.1); MONO % 13.5 % (3.8-10.2); NEUT % 64.4 % (42.8-82.8); PLATELET COUNT 237 10^3/uL (134-434); RBC 2.91 M/mm3 (3.60-5.2); RDW 20.9 % (11.6-15.6); WHITE BLOOD COUNT 6.3 K/mm3 (4.0-10.0)
[2023-05-28 08:00] LABS: BLOOD UREA NITROGEN 22.7 mg/dL (7-18)
[2023-05-28 08:04] LABS: CREATININE 4.6 mg/dL (0.55-1.3)
[2023-05-28 08:05] LABS: BILIRUBIN,TOTAL 0.6 mg/dL (0.2-1); TOT PROT 6.6 g/dl (6.4-8.2)
[2023-05-28] MEDS: SEVELAMER CARBONATE 0.8 GM POWDER PACKET PO SCH ×3 (08:21→18:15)
[2023-05-28] MEDS: amLODIPine BESYLATE 2.5 MG TABLET (FP) PO SCH ×2 (08:21→15:17)
[2023-05-28] MEDS ORDERED: REGADENOSON 0.4 MG/5 ML PRE-FILLED SYRINGE IVPUSH ONE ×2 (09:45→09:51)
[2023-05-28] MEDS ORDERED: SODIUM CHLORIDE 250 ML IV PRN (12:00)
[2023-05-28] MEDS ORDERED: EPOETIN ALFA-EPBX 10,000 UNIT/ML VIAL IVPUSH ONE (13:00)
[2023-05-28] MEDS ORDERED: HEPARIN NA (PORCINE) 5,000 UNITS/ML 1ML VIAL IVPUSH ONE (13:00)
[2023-05-28] MEDS: HEPARIN NA (PORCINE) 5,000 UNITS/ML 1ML VIAL SQ SCH ×2 (15:16→21:32)
[2023-05-28] MEDS: FOLIC ACID 1 MG TABLET (FP) PO SCH (18:13)
[2023-05-28] MEDS: CARVEDILOL 6.25 MG TABLET (FP) PO SCH ×2 (18:14→21:31)
[2023-05-28] MEDS: SERTRALINE HCL 25 MG TABLET (FP) PO SCH (18:14)
[2023-05-28] MEDS: ISOSORBIDE MONONITRATE 30 MG TAB.SR.24H (FP) PO SCH (18:14)
[2023-05-28] MEDS ORDERED: ACETAMINOPHEN 650 MG/20.3 ML ORAL SOLUTION (CUPS) PO PRN (18:46)
[2023-05-28] MEDS: ROSUVASTATIN CA 10 MG TABLET PO SCH (21:31)
[2023-05-28] MEDS: DONEPEZIL HCL 10 MG TABLET (FP) PO SCH (21:31)
[2023-05-29] MEDS: SEVELAMER CARBONATE 0.8 GM POWDER PACKET PO SCH ×2 (09:41→13:00)
[2023-05-29] MEDS ORDERED: amLODIPine BESYLATE 2.5 MG TABLET (FP) PO ONE (10:27)
[2023-05-29] MEDS ORDERED: amLODIPine BESYLATE 2.5 MG TABLET (FP) PO SCH (10:27)
[2023-05-29 10:37] VITALS: TEMP 98.4
[2023-05-29] MEDS: SERTRALINE HCL 25 MG TABLET (FP) PO SCH (10:38)
[2023-05-29] MEDS: ISOSORBIDE MONONITRATE 30 MG TAB.SR.24H (FP) PO SCH (10:38)
[2023-05-29] MEDS: CARVEDILOL 6.25 MG TABLET (FP) PO SCH (10:38)
[2023-05-29] MEDS: HEPARIN NA (PORCINE) 5,000 UNITS/ML 1ML VIAL SQ SCH (10:39)
[2023-05-29] MEDS: FOLIC ACID 1 MG TABLET (FP) PO SCH (10:42)
[2023-05-29] MEDS: amLODIPine BESYLATE 2.5 MG TABLET (FP) PO SCH (10:43)
[2023-05-29 12:06] VITALS: BP 123/55; PULSE 74; RESP 24
[2023-05-30] MEDS ORDERED: amLODIPine BESYLATE 2.5 MG TABLET (FP) PO SCH (10:00)
== END 2023-05-29 14:45 | disposition home health service (06) | DRG 291 ==
LOC: JER 17:28 → JERBED 21:49 → J4W 05-27 08:18 → OBSVTOIN 05-27 09:58 → J4W 05-29 01:05
PROVIDERS: ADMIT Internal Medicine; ATTEND Internal Medicine
PROC: 5A1D70Z Performance of Urinary Filtration, Intermittent, Less than 6 Hours Per Day (ICD-10-PCS; principal; 2023-05-26)
DX: I13.2 Hypertensive heart and chronic kidney disease with heart failure and with stage 5 chronic kidney disease, or end stage renal disease (principal); I50.33 Acute on chronic diastolic (congestive) heart failure; N18.6 End stage renal disease; I24.8 Other forms of acute ischemic heart disease; I42.8 Other cardiomyopathies; I25.10 Atherosclerotic heart disease of native coronary artery without angina pectoris; E78.5 Hyperlipidemia, unspecified; Z99.2 Dependence on renal dialysis; I25.2 Old myocardial infarction; D63.1 Anemia in chronic kidney disease; R19.7 Diarrhea, unspecified; I25.5 Ischemic cardiomyopathy
CPT/HCPCS: 0241U-QW; 36415; 71045-TC-FY; 78452-TC; 80053; 80061; 83735; 83880; 84100; 84484; 85025; 85610; 85730; 86704; 86803; 87340; 87517; 93005; 93010; 93017; 97116-GP; 97161-GP; 99285-25; A9502; C1887; G0378; J0885; J1644; J2785; Q5106

== ENCOUNTER 2023-10-05 11:51 | Inpatient (IN) | payer OTHER ==
[2023-10-05 12:08] VITALS: BMI 23.0
[2023-10-05 13:38] LABS: VENOUS BASE EXCESS 3.3 mmol/L (-2-2); VENOUS O2 SATURATION 65.7 % (70-80); VENOUS PCO2 55.3 mmHg (38-52); VENOUS PH 7.354 (7.310-7.410)
[2023-10-05 13:41] LABS: BASO % 0.7 % (0-2.0); HEMATOCRIT 35.4 % (32.4-45.2); HEMOGLOBIN 11.6 GM/dL (10.7-15.3); LYMPH % 9.4 % (8-40); MCH 33.8 pg (25.7-33.7); MCHC 32.8 g/dl (32.0-36.0); MEAN PLT VOLUME 7.4 fl (7.5-11.1); MONO % 10.4 % (3.8-10.2); NEUT % 77.5 % (42.8-82.8); PLATELET COUNT 226 10^3/uL (134-434); RBC 3.44 M/mm3 (3.60-5.2); RDW 17.5 % (11.6-15.6); WHITE BLOOD COUNT 7.9 K/mm3 (4.0-10.0)
[2023-10-05 13:47] LABS: PROTHROMBIN TIME (PATIENT) 11.6 SEC (9.7-13.0)
[2023-10-05 13:50] LABS: ACTIVATED PTT 29.1 SECONDS (25.2-36.5)
[2023-10-05 14:02] LABS: POTASSIUM 4.8 mmol/L (3.5-5.1)
[2023-10-05 14:04] LABS: ALBUMIN 3.7 g/dl (3.4-5.0); BLOOD UREA NITROGEN 34.1 mg/dL (7-18); CALCIUM 12.4 mg/dL (8.5-10.1); MAGNESIUM 2.7 mg/dL (1.8-2.4)
[2023-10-05 14:07] LABS: CREATININE 5.3 mg/dL (0.55-1.3)
[2023-10-05 14:09] LABS: BILIRUBIN,TOTAL 0.5 mg/dL (0.2-1); TOT PROT 7.6 g/dl (6.4-8.2)
[2023-10-05 14:27] LABS: N-TERMINAL BNP 53114.9 pg/ml (5-450)
[2023-10-05] MEDS ORDERED: ACETAMINOPHEN 1000 MG/100 ML BAG IVPB ONE (18:39)
[2023-10-05] MEDS ORDERED: ACETAMINOPHEN INJECTION 100 ML IVPB ONE (18:45)
[2023-10-06] MEDS ORDERED: ALBUTEROL SO4 2.5/IPRATROPIUM 0.5 INH SOL 3 ML VIAL.NEB. NEB PRN (00:03)
[2023-10-06] MEDS ORDERED: AZITHROMYCIN IVPB 500 MG in DEXTROSE 5%-WATER - 250 ML IVPB ONE (00:03)
[2023-10-06] MEDS ORDERED: AZITHROMYCIN IVPB 500 MG/250 ML BAG IVPB ONE (00:32)
[2023-10-06] MEDS ORDERED: ACETAMINOPHEN 1000 MG/100 ML BAG IVPB ONE ×2 (01:56→21:22)
[2023-10-06 03:28] LABS: EPI CELLS >36 /uL (0-25.1); HYALINE CASTS 0 /uL (0-3.1); PH,URINE 7.5 (5.0-8.0); URINE APPEARANCE CLEAR; URINE BACTERIA 408 /uL (0-1359); URINE BILIRUBIN NEGATIVE (NEGATIVE); URINE COLOR YELLOW; URINE GLUCOSE (UA) NEGATIVE (NEGATIVE); URINE KETONE NEGATIVE (NEGATIVE); URINE LEUK ESTERASE NEGATIVE (NEGATIVE); URINE NITRITE NEGATIVE (NEGATIVE); URINE PROTEIN 4+ (NEGATIVE); URINE RBC 21 /uL (0-23.9); URINE UROBILINOGEN 0.2 mg/dL (0.2-1.0); URINE WBC 19 /uL (0-25.8)
[2023-10-06 07:42] LABS: BASO % 0.8 % (0-2.0); EOS % 2.3 % (0-4.5); HEMATOCRIT 33.2 % (32.4-45.2); HEMOGLOBIN 11.1 GM/dL (10.7-15.3); LYMPH % 18.8 % (8-40); MCH 34.6 pg (25.7-33.7); MCHC 33.5 g/dl (32.0-36.0); MEAN CELL VOLUME 103.3 fl (80-96); MEAN PLT VOLUME 7.7 fl (7.5-11.1); MONO % 11.3 % (3.8-10.2); NEUT % 66.8 % (42.8-82.8); PLATELET COUNT 225 10^3/uL (134-434); RBC 3.21 M/mm3 (3.60-5.2); RDW 17.5 % (11.6-15.6); WHITE BLOOD COUNT 6.9 K/mm3 (4.0-10.0)
[2023-10-06 07:53] LABS: POTASSIUM 5.5 mmol/L (3.5-5.1)
[2023-10-06 08:12] LABS: ALBUMIN 3.3 g/dl (3.4-5.0); BLOOD UREA NITROGEN 39.4 mg/dL (7-18)
[2023-10-06 08:15] LABS: CREATININE 6.1 mg/dL (0.55-1.3)
[2023-10-06 08:16] LABS: TOT PROT 6.8 g/dl (6.4-8.2)
[2023-10-06 08:17] LABS: BILIRUBIN,TOTAL 0.4 mg/dL (0.2-1)
[2023-10-06 08:25] LABS: CALCIUM 10.5 mg/dL (8.5-10.1)
[2023-10-06] MEDS ORDERED: CEFTRIAXONE 1 GM/50 ML BAG ONE (09:31)
[2023-10-06] MEDS: CEFTRIAXONE 1 GM in DEXTROSE 5%-WATER - 50 ML IVPB SCH (09:54)
[2023-10-06] MEDS: FUROSEMIDE 40 MG/4 ML INJECTABLE VIAL IVPUSH SCH (09:54)
[2023-10-06] MEDS: SEVELAMER CARBONATE 0.8 GM POWDER PACKET PO SCH ×3 (09:54→18:44)
[2023-10-06] MEDS: amLODIPine BESYLATE 5 MG TABLET (FP) PO SCH (09:54)
[2023-10-06] MEDS: CARVEDILOL 6.25 MG TABLET (FP) PO SCH ×2 (09:54→21:28)
[2023-10-06] MEDS: ISOSORBIDE MONONITRATE 30 MG TAB.SR.24H (FP) PO SCH (09:54)
[2023-10-06] MEDS: HEPARIN NA (PORCINE) 5,000 UNITS/ML 1ML VIAL SQ SCH ×2 (09:54→21:28)
[2023-10-06] MEDS: SERTRALINE HCL 25 MG TABLET (FP) PO SCH (09:55)
[2023-10-06] MEDS ORDERED: SODIUM CHLORIDE 250 ML IV PRN (11:36)
[2023-10-06] MEDS: ROSUVASTATIN CA 10 MG TABLET PO SCH (21:28)
[2023-10-06] MEDS: DONEPEZIL HCL 10 MG TABLET (FP) PO SCH (21:28)
[2023-10-07] MEDS ORDERED: ACETAMINOPHEN 325 MG TABLET (FP) PO ONE (08:15)
[2023-10-07] MEDS: SEVELAMER CARBONATE 0.8 GM POWDER PACKET PO SCH ×3 (08:28→17:37)
[2023-10-07] MEDS: HEPARIN NA (PORCINE) 5,000 UNITS/ML 1ML VIAL SQ SCH ×2 (09:15→21:03)
[2023-10-07] MEDS: amLODIPine BESYLATE 5 MG TABLET (FP) PO SCH (09:15)
[2023-10-07] MEDS: CARVEDILOL 6.25 MG TABLET (FP) PO SCH ×2 (09:15→21:03)
[2023-10-07] MEDS: CEFTRIAXONE 1 GM in DEXTROSE 5%-WATER - 50 ML IVPB SCH (09:15)
[2023-10-07] MEDS: ISOSORBIDE MONONITRATE 30 MG TAB.SR.24H (FP) PO SCH (09:15)
[2023-10-07] MEDS: SERTRALINE HCL 25 MG TABLET (FP) PO SCH (09:15)
[2023-10-07] MEDS: FUROSEMIDE 40 MG/4 ML INJECTABLE VIAL IVPUSH SCH (09:50)
[2023-10-07] MEDS ORDERED: SODIUM CHLORIDE 250 ML IV PRN (14:17)
[2023-10-07] MEDS: ACETAMINOPHEN 1000 MG/100 ML BAG IVPB PRN ×2 (14:47→21:03)
[2023-10-07] MEDS: DONEPEZIL HCL 10 MG TABLET (FP) PO SCH (21:03)
[2023-10-07] MEDS: ROSUVASTATIN CA 10 MG TABLET PO SCH (21:03)
[2023-10-08 08:08] LABS: BASO % 0.7 % (0-2.0); EOS % 2.6 % (0-4.5); HEMATOCRIT 33.8 % (32.4-45.2); LYMPH % 24.8 % (8-40); MCH 33.7 pg (25.7-33.7); MCHC 32.5 g/dl (32.0-36.0); MEAN CELL VOLUME 103.6 fl (80-96); MEAN PLT VOLUME 7.7 fl (7.5-11.1); MONO % 14.4 % (3.8-10.2); NEUT % 57.5 % (42.8-82.8); PLATELET COUNT 239 10^3/uL (134-434); RBC 3.27 M/mm3 (3.60-5.2); RDW 17.4 % (11.6-15.6); WHITE BLOOD COUNT 5.2 K/mm3 (4.0-10.0)
[2023-10-08 08:23] LABS: POTASSIUM 4.3 mmol/L (3.5-5.1)
[2023-10-08 08:29] LABS: CALCIUM 10.1 mg/dL (8.5-10.1)
[2023-10-08 08:30] LABS: ALBUMIN 3.3 g/dl (3.4-5.0)
[2023-10-08 08:33] LABS: CREATININE 5.2 mg/dL (0.55-1.3)
[2023-10-08 08:35] LABS: BILIRUBIN,TOTAL 0.4 mg/dL (0.2-1)
[2023-10-08] MEDS: CEFTRIAXONE 1 GM in DEXTROSE 5%-WATER - 50 ML IVPB SCH (09:54)
[2023-10-08] MEDS: HEPARIN NA (PORCINE) 5,000 UNITS/ML 1ML VIAL SQ SCH ×2 (09:55→21:26)
[2023-10-08] MEDS: amLODIPine BESYLATE 5 MG TABLET (FP) PO SCH (09:55)
[2023-10-08] MEDS: SEVELAMER CARBONATE 0.8 GM POWDER PACKET PO SCH ×2 (09:55→12:32)
[2023-10-08] MEDS: ISOSORBIDE MONONITRATE 30 MG TAB.SR.24H (FP) PO SCH (09:55)
[2023-10-08] MEDS: FUROSEMIDE 40 MG/4 ML INJECTABLE VIAL IVPUSH SCH (09:55)
[2023-10-08] MEDS: SERTRALINE HCL 25 MG TABLET (FP) PO SCH (09:55)
[2023-10-08] MEDS: CARVEDILOL 6.25 MG TABLET (FP) PO SCH ×2 (09:55→21:25)
[2023-10-08] MEDS: ACETAMINOPHEN 325 MG TABLET (FP) PO PRN ×2 (12:33→21:26)
[2023-10-08] MEDS: POLYETHYLENE GLYCOL (HEALTHYLAX) 3350 17 GM PACKET PO SCH (13:57)
[2023-10-08] MEDS: ROSUVASTATIN CA 10 MG TABLET PO SCH (21:25)
[2023-10-08] MEDS: DONEPEZIL HCL 10 MG TABLET (FP) PO SCH (21:25)
[2023-10-09] MEDS: SEVELAMER CARBONATE 0.8 GM POWDER PACKET PO SCH ×4 (08:56→17:20)
[2023-10-09] MEDS: amLODIPine BESYLATE 5 MG TABLET (FP) PO SCH (10:49)
[2023-10-09] MEDS: CARVEDILOL 6.25 MG TABLET (FP) PO SCH ×2 (10:50→21:28)
[2023-10-09] MEDS: SERTRALINE HCL 25 MG TABLET (FP) PO SCH (10:50)
[2023-10-09] MEDS: HEPARIN NA (PORCINE) 5,000 UNITS/ML 1ML VIAL SQ SCH ×2 (10:50→21:28)
[2023-10-09] MEDS: ISOSORBIDE MONONITRATE 30 MG TAB.SR.24H (FP) PO SCH (10:50)
[2023-10-09] MEDS: FUROSEMIDE 40 MG/4 ML INJECTABLE VIAL IVPUSH SCH (10:50)
[2023-10-09] MEDS: POLYETHYLENE GLYCOL (HEALTHYLAX) 3350 17 GM PACKET PO SCH (10:54)
[2023-10-09] MEDS: CEFTRIAXONE 1 GM in DEXTROSE 5%-WATER - 50 ML IVPB SCH (11:16)
[2023-10-09] MEDS ORDERED: SODIUM CHLORIDE 250 ML IV PRN (13:19)
[2023-10-09] MEDS: ACETAMINOPHEN 325 MG TABLET (FP) PO PRN (18:52)
[2023-10-09] MEDS: ROSUVASTATIN CA 10 MG TABLET PO SCH (21:28)
[2023-10-09] MEDS: DONEPEZIL HCL 10 MG TABLET (FP) PO SCH (21:28)
[2023-10-10] MEDS: ACETAMINOPHEN 325 MG TABLET (FP) PO PRN ×3 (00:54→16:00)
[2023-10-10 07:42] LABS: EOS % 2.8 % (0-4.5); HEMATOCRIT 32.1 % (32.4-45.2); LYMPH % 28.6 % (8-40); MCH 34.7 pg (25.7-33.7); MCHC 34.1 g/dl (32.0-36.0); MEAN CELL VOLUME 101.8 fl (80-96); MEAN PLT VOLUME 7.7 fl (7.5-11.1); MONO % 15.2 % (3.8-10.2); NEUT % 52.4 % (42.8-82.8); PLATELET COUNT 244 10^3/uL (134-434); RBC 3.16 M/mm3 (3.60-5.2); WHITE BLOOD COUNT 4.8 K/mm3 (4.0-10.0)
[2023-10-10] MEDS: SEVELAMER CARBONATE 0.8 GM POWDER PACKET PO SCH ×3 (08:10→17:55)
[2023-10-10] MEDS: FUROSEMIDE 40 MG/4 ML INJECTABLE VIAL IVPUSH SCH (12:33)
[2023-10-10] MEDS: ISOSORBIDE MONONITRATE 30 MG TAB.SR.24H (FP) PO SCH (12:35)
[2023-10-10] MEDS: CARVEDILOL 6.25 MG TABLET (FP) PO SCH ×2 (12:35→21:21)
[2023-10-10] MEDS: amLODIPine BESYLATE 5 MG TABLET (FP) PO SCH (12:35)
[2023-10-10] MEDS: CEFTRIAXONE 1 GM in DEXTROSE 5%-WATER - 50 ML IVPB SCH (12:35)
[2023-10-10] MEDS: SERTRALINE HCL 25 MG TABLET (FP) PO SCH (12:35)
[2023-10-10] MEDS: HEPARIN NA (PORCINE) 5,000 UNITS/ML 1ML VIAL SQ SCH (12:35)
[2023-10-10] MEDS: POLYETHYLENE GLYCOL (HEALTHYLAX) 3350 17 GM PACKET PO SCH (12:37)
[2023-10-10] MEDS: ROSUVASTATIN CA 10 MG TABLET PO SCH (21:21)
[2023-10-10] MEDS: DONEPEZIL HCL 10 MG TABLET (FP) PO SCH (21:21)
[2023-10-10] MEDS ORDERED: MELATONIN 5 MG TABLETS PO ONE (21:36)
[2023-10-11] MEDS: ACETAMINOPHEN 325 MG TABLET (FP) PO PRN ×4 (00:08→23:55)
[2023-10-11 07:32] LABS: BASO % 0.8 % (0-2.0); EOS % 2.8 % (0-4.5); HEMATOCRIT 33.8 % (32.4-45.2); HEMOGLOBIN 11.2 GM/dL (10.7-15.3); LYMPH % 23.2 % (8-40); MCH 33.9 pg (25.7-33.7); MCHC 33.1 g/dl (32.0-36.0); MEAN CELL VOLUME 102.4 fl (80-96); MEAN PLT VOLUME 7.6 fl (7.5-11.1); MONO % 12.9 % (3.8-10.2); NEUT % 60.3 % (42.8-82.8); PLATELET COUNT 259 10^3/uL (134-434); RDW 16.8 % (11.6-15.6); WHITE BLOOD COUNT 5.8 K/mm3 (4.0-10.0)
[2023-10-11 07:47] LABS: POTASSIUM 3.8 mmol/L (3.5-5.1)
[2023-10-11 07:50] LABS: ALBUMIN 3.3 g/dl (3.4-5.0)
[2023-10-11 07:53] LABS: CREATININE 4.5 mg/dL (0.55-1.3)
[2023-10-11 07:54] LABS: BILIRUBIN,TOTAL 0.4 mg/dL (0.2-1); TOT PROT 7.2 g/dl (6.4-8.2)
[2023-10-11] MEDS: FUROSEMIDE 40 MG/4 ML INJECTABLE VIAL IVPUSH SCH (09:12)
[2023-10-11] MEDS: amLODIPine BESYLATE 5 MG TABLET (FP) PO SCH (09:12)
[2023-10-11] MEDS: CARVEDILOL 6.25 MG TABLET (FP) PO SCH ×2 (09:12→21:15)
[2023-10-11] MEDS: POLYETHYLENE GLYCOL (HEALTHYLAX) 3350 17 GM PACKET PO SCH (09:12)
[2023-10-11] MEDS: SERTRALINE HCL 25 MG TABLET (FP) PO SCH (09:12)
[2023-10-11] MEDS: CEFTRIAXONE 1 GM in DEXTROSE 5%-WATER - 50 ML IVPB SCH (09:12)
[2023-10-11] MEDS: ISOSORBIDE MONONITRATE 30 MG TAB.SR.24H (FP) PO SCH (09:12)
[2023-10-11] MEDS: SEVELAMER CARBONATE 0.8 GM POWDER PACKET PO SCH ×3 (09:13→17:21)
[2023-10-11] MEDS: DONEPEZIL HCL 10 MG TABLET (FP) PO SCH (21:15)
[2023-10-11] MEDS: ROSUVASTATIN CA 10 MG TABLET PO SCH (21:15)
[2023-10-12] MEDS: ACETAMINOPHEN 325 MG TABLET (FP) PO PRN ×3 (05:59→21:39)
[2023-10-12] MEDS: SEVELAMER CARBONATE 0.8 GM POWDER PACKET PO SCH ×3 (08:23→17:17)
[2023-10-12] MEDS: SERTRALINE HCL 25 MG TABLET (FP) PO SCH (09:23)
[2023-10-12] MEDS: CEFTRIAXONE 1 GM in DEXTROSE 5%-WATER - 50 ML IVPB SCH (09:23)
[2023-10-12] MEDS: ISOSORBIDE MONONITRATE 30 MG TAB.SR.24H (FP) PO SCH (09:23)
[2023-10-12] MEDS: FUROSEMIDE 40 MG/4 ML INJECTABLE VIAL IVPUSH SCH (09:23)
[2023-10-12] MEDS: POLYETHYLENE GLYCOL (HEALTHYLAX) 3350 17 GM PACKET PO SCH (09:24)
[2023-10-12] MEDS: CARVEDILOL 6.25 MG TABLET (FP) PO SCH ×2 (09:24→21:39)
[2023-10-12] MEDS: amLODIPine BESYLATE 5 MG TABLET (FP) PO SCH (09:24)
[2023-10-12 18:34] VITALS: RESP 18
[2023-10-12] MEDS: DONEPEZIL HCL 10 MG TABLET (FP) PO SCH (21:39)
[2023-10-12] MEDS: ROSUVASTATIN CA 10 MG TABLET PO SCH (21:39)
[2023-10-13 07:40] LABS: POTASSIUM 4.2 mmol/L (3.5-5.1)
[2023-10-13 07:44] LABS: ALBUMIN 3.4 g/dl (3.4-5.0); CALCIUM 10.6 mg/dL (8.5-10.1)
[2023-10-13 07:47] LABS: CREATININE 7.2 mg/dL (0.55-1.3)
[2023-10-13 07:49] LABS: BILIRUBIN,TOTAL 0.4 mg/dL (0.2-1); TOT PROT 6.8 g/dl (6.4-8.2)
[2023-10-13 08:02] LABS: BASO % 1.1 % (0-2.0); HEMATOCRIT 30.9 % (32.4-45.2); HEMOGLOBIN 10.3 GM/dL (10.7-15.3); LYMPH % 18.2 % (8-40); MCH 34.2 pg (25.7-33.7); MCHC 33.3 g/dl (32.0-36.0); MEAN CELL VOLUME 102.7 fl (80-96); MONO % 14.5 % (3.8-10.2); NEUT % 62.2 % (42.8-82.8); PLATELET COUNT 252 10^3/uL (134-434); RBC 3.01 M/mm3 (3.60-5.2); WHITE BLOOD COUNT 5.9 K/mm3 (4.0-10.0)
[2023-10-13] MEDS: SEVELAMER CARBONATE 0.8 GM POWDER PACKET PO SCH ×3 (08:50→18:21)
[2023-10-13] MEDS ORDERED: SODIUM CHLORIDE 250 ML IV PRN (10:00)
[2023-10-13] MEDS: ACETAMINOPHEN 325 MG TABLET (FP) PO PRN (14:52)
[2023-10-13] MEDS: POLYETHYLENE GLYCOL (HEALTHYLAX) 3350 17 GM PACKET PO SCH (14:52)
[2023-10-13] MEDS: ISOSORBIDE MONONITRATE 30 MG TAB.SR.24H (FP) PO SCH (14:53)
[2023-10-13] MEDS: CARVEDILOL 6.25 MG TABLET (FP) PO SCH ×2 (14:53→21:55)
[2023-10-13] MEDS: SERTRALINE HCL 25 MG TABLET (FP) PO SCH (14:53)
[2023-10-13] MEDS: amLODIPine BESYLATE 5 MG TABLET (FP) PO SCH (14:53)
[2023-10-13] MEDS: FUROSEMIDE 40 MG/4 ML INJECTABLE VIAL IVPUSH SCH (14:54)
[2023-10-13] MEDS: DONEPEZIL HCL 10 MG TABLET (FP) PO SCH (21:55)
[2023-10-13] MEDS: ROSUVASTATIN CA 10 MG TABLET PO SCH (21:55)
[2023-10-14] MEDS: ACETAMINOPHEN 325 MG TABLET (FP) PO PRN (01:28)
[2023-10-14 06:32] VITALS: PULSE 81
[2023-10-14] MEDS: SEVELAMER CARBONATE 0.8 GM POWDER PACKET PO SCH (07:43)
[2023-10-14] MEDS: FUROSEMIDE 40 MG/4 ML INJECTABLE VIAL IVPUSH SCH (09:19)
[2023-10-14] MEDS: amLODIPine BESYLATE 5 MG TABLET (FP) PO SCH (09:19)
[2023-10-14] MEDS: SERTRALINE HCL 25 MG TABLET (FP) PO SCH (09:19)
[2023-10-14] MEDS: CARVEDILOL 6.25 MG TABLET (FP) PO SCH (09:19)
[2023-10-14] MEDS: POLYETHYLENE GLYCOL (HEALTHYLAX) 3350 17 GM PACKET PO SCH (09:19)
[2023-10-14] MEDS: ISOSORBIDE MONONITRATE 30 MG TAB.SR.24H (FP) PO SCH (09:20)
[2023-10-14 11:06] VITALS: BP 156/72; TEMP 98.2
== END 2023-10-14 13:15 | DRG 291 ==
LOC: JER 11:51 → JERBED 15:04 → J4W 10-06 16:33 → UNDODISIN 10-14 12:23
PROVIDERS: ADMIT Internal Medicine; ATTEND Internal Medicine
PROC: 5A1D70Z Performance of Urinary Filtration, Intermittent, Less than 6 Hours Per Day (ICD-10-PCS; principal; 2023-10-13)
DX: I13.2 Hypertensive heart and chronic kidney disease with heart failure and with stage 5 chronic kidney disease, or end stage renal disease (principal); I50.33 Acute on chronic diastolic (congestive) heart failure; N18.6 End stage renal disease; J18.9 Pneumonia, unspecified organism; E87.1 Hypo-osmolality and hyponatremia; I16.1 Hypertensive emergency; I24.89 Other forms of acute ischemic heart disease; D64.9 Anemia, unspecified; I42.9 Cardiomyopathy, unspecified; F03.90 Unspecified dementia, unspecified severity, without behavioral disturbance, psychotic disturbance, mood disturbance, and anxiety; Z99.2 Dependence on renal dialysis; I25.10 Atherosclerotic heart disease of native coronary artery without angina pectoris; E78.5 Hyperlipidemia, unspecified; E78.00 Pure hypercholesterolemia, unspecified; I16.0 Hypertensive urgency
CPT/HCPCS: 0241U-QW; 36415; 71045-TC-FY; 76856-TC; 80053; 81003; 82272; 82550; 82803; 83036; 83605; 83735; 83880; 84439; 84443; 84484; 85025; 85610; 85730; 86704; 86803; 86850; 86900; 86901; 87040; 87086; 87186; 87340; 87517; 87635; 93005; 93010; 93306-TC; 94660; 97116-GP; 97162-GP; 99285-25; J0131; J1644